=== PATIENT | male | born 1955 | race African-American/Black ===

== ENCOUNTER 2022-03-07 08:59 | Emergency (ER) | payer SELFPAY ==
[~2022-03-07] VITALS: Ht 185.4 cm; Wt 68.0 kg
[2022-03-07] MEDS ORDERED: LIDOCAINE 2% 20 ML MDV ONE (09:11)
[2022-03-07] MEDS ORDERED: LIDOCAINE HCL/PF 1% 30 ML SDV ONE (09:28)
[2022-03-07] MEDS ORDERED: BACI/NEOM/POLY B OINT PKT 1 UDPKT PACKET ONE (09:29)
[2022-03-07] MEDS: BACI/NEOM/POLY B OINT PKT 1 UDPKT PACKET TP ONE (09:30)
[2022-03-07] MEDS: LIDOCAINE 1% INJ 50 ML MDV IJ ONE (09:30)
--- NOTE | 2022-03-07 11:00 | NUR ---
BIB [facility] 89 [facility] AT [facility] -BT - LOC, PT HAS HIS OF CHF AND HAS BILATERAL LOWER EXTREMITY SWELLING THAT MAKES HER TRIP, LAC ON L EYEBROW. PLACED ON BED, AAOX4, BREATHING EVEN AND UNLABORED SATURATING AT 97%RA
[2022-03-07] MEDS ORDERED: LIDOCAINE 1% INJ 50 ML MDV IJ ONE (11:06)
--- NOTE | 2022-03-07 12:37 | NUR ---
CT HEAD RESULTED,WAITING FOR DISPO
[2022-03-07] MEDS ORDERED: IBUP-1955 PO (12:52)
--- NOTE | 2022-03-07 13:00 | NUR ---
SUTURE DONE BY AND NEOSPORIN OINTMENT APPLIED.
--- NOTE | 2022-03-07 13:25 | NUR ---
Patient discharged to home in stable condition. Written and verbal after care instructions given. Patient verbalizes understanding of instruction.
[2022-03-07 13:59] VITALS: BP 110/60
== END 2022-03-07 13:25 | disposition home or self-care (01) ==
LOC: ER 09:21
DX: S01.112A Laceration without foreign body of left eyelid and periocular area, initial encounter (principal); S01.511A Laceration without foreign body of lip, initial encounter; I11.0 Hypertensive heart disease with heart failure; I50.9 Heart failure, unspecified; W10.1XXA Fall (on)(from) sidewalk curb, initial encounter; Y93.89 Activity, other specified; Y92.89 Other specified places as the place of occurrence of the external cause; Y99.8 Other external cause status
CPT/HCPCS: 99284; 70450; 12013; J7030; A6403; J3490 ×2

== ENCOUNTER 2022-03-13 13:15 | Emergency (ER) | payer MEDICAID ==
[~2022-03-13] VITALS: Ht 185.4 cm; Wt 68.0 kg
[2022-03-13 13:15] VITALS: BP 98/72
[~2022-03-13 13:15] MED LIST: IBUP-1955 PO
--- NOTE | 2022-03-13 13:15 | NUR ---
BIBS FOR FOLLOW UP AND SUTURE REMOVAL ON HIS L EYEBROW, DENIES ANY PAIN
--- NOTE | 2022-03-13 14:31 | NUR ---
Patient discharged to home in stable condition. Written and verbal after care instructions given. Patient verbalizes understanding of instruction.
== END 2022-03-13 14:31 | disposition home or self-care (01) ==
LOC: ER 13:16
DX: Z48.02 Encounter for removal of sutures (principal); S01.112D Laceration without foreign body of left eyelid and periocular area, subsequent encounter; I11.0 Hypertensive heart disease with heart failure; I50.9 Heart failure, unspecified; Z79.1 Long term (current) use of non-steroidal anti-inflammatories (NSAID); X58.XXXD Exposure to other specified factors, subsequent encounter

== ENCOUNTER 2022-03-20 12:25 | Inpatient (IN) | payer MEDICAID ==
[~2022-03-20] VITALS: Ht 185.4 cm; Wt 73.9 kg
--- NOTE | 2022-03-20 12:45 | NUR ---
BIB FAMILY C/O GENERALIZED WEAKNESS, POOR PO INTAKE AND FREQUENT FALLS FOR THE PAST 2 WEEKS. TO ER BED 7.
[2022-03-20] MEDS ORDERED: CLON0.5T4 PO (13:15)
[2022-03-20] MEDS ORDERED: FOLI0.8T23 PO (13:15)
[2022-03-20] MEDS ORDERED: ASPI-1420 PO (13:15)
[2022-03-20] MEDS ORDERED: SPIR25TA6 PO (13:15)
[2022-03-20] MEDS ORDERED: CARV12.52 PO (13:15)
[2022-03-20] MEDS ORDERED: ALLO100T PO (13:15)
[2022-03-20] MEDS ORDERED: DAPA10TA PO (13:15)
[2022-03-20] MEDS ORDERED: IV NS 0.9% 500 ML BAG IV ONE (13:30)
--- NOTE | 2022-03-20 14:00 | NUR ---
IV LINE ESTABLISHED ON RFA #22. NS IV INFUSING.
--- NOTE | 2022-03-20 14:14 | NUR ---
MOVE SHEET SUBMITTED.
--- NOTE | 2022-03-20 14:46 | NUR ---
COVID SWAB COLLECTED AND SENT TO LAB
--- NOTE | 2022-03-20 14:51 | NUR ---
IV ESTABLISHED L AC 20G. LABS DRAWN AND COLLECTED AT BEDSIDE.
[2022-03-20 15:03] LABS: BASOPHILS % (AUTO) 0.2 % (0.0-2.0); EOSINOPHILS % (AUTO) 0.2 % (0.0-6.0); HEMATOCRIT 46 % (39-51); HEMOGLOBIN 14.7 g/dL (13.5-17.5); LYMPHOCYTES # (AUTO) 0.5 K/uL (0.8-4.8); LYMPHOCYTES % (AUTO) 7.3 % (20.0-44.0); MEAN CORPUSCULAR HGB CONC 32 g/dl (31.0-36.0); MEAN CORPUSCULAR VOLUME 89 fL (80-96); MONOCYTES # (AUTO) 0.5 K/uL (0.1-1.30); MONOCYTES % (AUTO) 6.8 % (2.0-12.0); NEUTROPHILS # (AUTO) 5.8 K/uL (1.8-8.9); NEUTROPHILS % (AUTO) 85.5 % (43.0-81.0); PLATELET COUNT (AUTO) 91 K/uL (150-450); WHITE BLOOD COUNT (AUTO) 6.7 K/uL (4.3-11.0)
[2022-03-20 16:31] LABS: CALCIUM, SERUM 9.4 mg/dL (8.5-10.1); CARBON DIOXIDE 17 mmol/L (21-32); CHLORIDE 103 mmol/L (98-107); CREATININE 2.5 mg/dL (0.6-1.3); GLUCOSE 72 mg/dL (74-106); POTASSIUM 4.9 mmol/L (3.5-5.1); SODIUM SERUM 136 mmol/L (136-145)
[2022-03-20 16:37] LABS: ALANINE AMINOTRANSFERASE 35 U/L (12-78); ALBUMIN 2.5 g/dL (3.4-5.0); ALKALINE PHOSPHATASE 105 U/L (46-116); ASPARTATE AMINOTRANSFERASE 26 U/L (15-37); BILIRUBIN,DIRECT 1.8 mg/dL (0.0-0.2); BILIRUBIN,TOTAL 2.6 mg/dL (0.2-1.0); TOTAL PROTEIN, SERUM 7.6 g/dL (6.4-8.2)
[2022-03-20 16:38] LABS: UREA NITROGEN, BLOOD 87 mg/dL (7-18)
--- NOTE | 2022-03-20 16:59 | NUR ---
RT AT BEDSIDE FOR ABG
[2022-03-20] MEDS ORDERED: PIPERACILLIN /TAZOBACTAM 3.375 G in IV D5W 50 ML IV ONE (17:00)
[2022-03-20] MEDS ORDERED: IV NS 0.9% 1,000 ML BAG IV ONE (17:00)
--- NOTE | 2022-03-20 17:07 | NUR ---
MIDLINE NURSE AT BEDSIDE
[2022-03-20 17:10] LABS: ABG BASE EXCESS -11.3 mmol/L; ABG PCO2 30.8 mmHg (35.0-45.0); ABG PO2 25.9 mmHg (75.0-100.0); COHb 0.3 % (0.5-1.5); MetHb 0.5 % (0.0-1.5); O2Hb 33.5 % (94.0-97.0); SITE, ABG Right Radial; VENT MODE, BG ROOMAIR
[2022-03-20 17:26] LABS: CREATINE KINASE, TOTAL 122 U/L (39-308)
--- NOTE | 2022-03-20 17:35 | NUR ---
PT TAKEN TO RADIOLOGY FOR CT
--- NOTE | 2022-03-20 17:38 | NUR ---
BED GIVEN 322-2
[2022-03-20 17:47] LABS: BAND % (MANUAL) 12 % (0.0-5.0); LYMPHOCYTES % (MANUAL) 7 % (16-48); MONOCYTES % (MANUAL) 5 % (0-11.0); NEUTROPHILS % (MANUAL) 76 (42-76)
--- NOTE | 2022-03-20 17:52 | NUR ---
PT REPORT GIVEN TO KAYODE JOHNSON
[2022-03-20] MEDS ORDERED: IV NS 0.9% 1,000 ML IV SCH (18:00)
[2022-03-20] MEDS ORDERED: *INSULIN REGULAR(HUMULIN R)HUM 100 UNIT/ML VIAL SQ PRN (18:00)
[2022-03-20] MEDS ORDERED: MAGNESIUM HYDROXIDE 30 ML UDC PO PRN (18:00)
[2022-03-20] MEDS ORDERED: MAG HYDROX/AL HYDROX/SIMETH 30 ML UDC PO PRN (18:00)
[2022-03-20] MEDS ORDERED: ACETAMINOPHEN 325 MG TABLET PO PRN (18:00)
[2022-03-20] MEDS ORDERED: CEFTRIAXONE 1 G in IV D5W 50 ML IV SCH (18:00)
[2022-03-20] MEDS ORDERED: ONDANSETRON HCL/PF 4 MG/2 ML VIAL IVP PRN (18:00)
[2022-03-20] MEDS ORDERED: clonazePAM 0.5 MG TABLET PO PRN (18:00)
[2022-03-20] MEDS ORDERED: Z GUARD REMEDY 4 OZ OINT TP PRN (18:00)
--- NOTE | 2022-03-20 18:57 | NUR ---
PT TRANSFERRED TO [facility]-2 VIA [facility] ACLS PROTOCOL. WARM HANDOFF GIVEN TO KAYODE JOHNSON
--- NOTE | 2022-03-20 19:30 | NUR ---
RN OPENING NOTE HAND-OFF REPORT WAS GIVEN TO THIS NURSE FROM DAY SHIFT RNELIZABETH. DAY SHIFT HAD RECEIVED PATIENT AT SHIFT CHANGE. PATIENT IN BED W/ MOTHER AT BEDSIDE. A/OX3. NO S/S OF DISTRESS, BREATHING WITHOUT DIFFICULTY ON ROOM AIR. LAC #20 SL INTACT AND PATENT; DONTA MIDLINE #18 SL INTACT AND PATENT. TELE READS SR 89 W/ BBB AND PVCs. SAFETY MEASURES IN PLACE: BED LOCKED IN PLACE AND AT LOWEST POSITION, RAILS UP X2, CALL [place] WITHIN REACH. PATIENT WAS ALREADY IN BED WHEN THIS RN CAME ON DUTY. PATIENT WAS ORIENTED TO THE UNIT. PATIENT GIVEN CALL [place] AND INSTRUCTED ON ITS USE. BELONGINGS WERE ACCOUNTED FOR, LOGGED IN SHEET, AND PLACED IN CHART. PATIENT STABLE. WILL CONTINUE TO MONITOR.
[2022-03-20] MEDS ORDERED: VANCOMYCIN 1 GM in IV D5W 250 ML IV ONE (20:00)
--- NOTE | 2022-03-20 20:35 | NUR ---
RN NOTE PATIENT HAD A CRITICAL LAB OF LACTIC ACID OF 5.5. THIS IS DOWN FROM 5.9 FROM EARLIER UPON ADMISSION. ON-CALL HUBER SHEFFIELD, NOTIFIED. WILL CONTINUE TO MONITOR PATIENT.
[2022-03-20] MEDS: DEXTROSE 50%-WATER 50 ML DISP.SYRIN IV PRN ×2 (21:25→22:41)
[2022-03-20] MEDS: BLOOD SUGAR DIAGNOSTIC 1 EACH STRIP VI SCH (22:34)
--- NOTE | 2022-03-20 22:40 | NUR ---
RN NOTE PATIENT'S ACCUCHECK WAS 31 (DOUBLE-CHECKED/VERIFIED). DEXTROSE ADMINISTERED PER PROTOCOL. RE-CHECK ON ACCUCHECK REVEALS 94 - ISSUE RESOLVED. PATIENT HAS ALSO COMPLAINED OF SOB; O2 CHECKED: DROPPED TO 72%. PATIENT DOES HAVE A HX OF CHF. NC ADMINISTERED W/ 2L/MIN. PATIENT REGAINED O2 STABILITY SATTING AT 100%. PATIENT STATED HE FELT MORE RELIEVED. PATIENT STABLE; WILL CONTINUE TO CLOSELY MONITOR PATIENT.
[2022-03-21] VITALS (48 sets, daily range): BP systolic 51–120; BP diastolic 22–85
[2022-03-21] MEDS: ZOSYN IVPB 3.375 G in IV D5W 50ml IV SCH ×4 (00:23→18:10)
--- NOTE | 2022-03-21 02:50 | NUR ---
RN NOTE CONTACTED ON-CALL HUBER SHEFFIELD, REGARDING PATIENT'S COMPLAINTS OF POSSIBLE BLADDER PAIN. ORDER WAS GIVEN FOR USE OF BLADDER SCANNER, AND TO HOLD OFF IV FLUIDS FOR NOW DUE TO CONCERNS OF FLUID OVERLOAD AND PATIENT'S COMPLAINTS OF SOB. PATIENT O/W STABLE; WILL CONTINUE TO MONITOR PATIENT.
--- NOTE | 2022-03-21 03:50 | NUR ---
RN NOTE BLADDER SCANNER REVEALED URINARY RETENTION AT >365ML. ON-CALL NOTIFIED. ORDER GIVEN FOR JONES INSERTION. PATIENT O/W STABLE; WILL CONTINUE TO MONITOR.
[2022-03-21] MEDS: DEXTROSE 50%-WATER 50 ML DISP.SYRIN IV PRN ×2 (05:42→12:22)
--- NOTE | 2022-03-21 07:02 | NUR ---
RN CLOSING NOTE PATIENT AWAKE IN BED. A/OX2. NO S/S OF DISTRESS, BREATHING WITHOUT DIFFICULTY ON 2L NC. DONTA MIDLINE #SL & LFA #20 SL INTACT AND PATENT. TELE READS SR83 W/ BBB AND PVCs. SAFETY MEASURES IN PLACE: BED LOCKED IN PLACE AND AT LOWEST POSITION, RAILS UP X2, CALL [place] WITHIN REACH. WILL ENDORSE TO NEXT SHIFT FOR TAYLOR.
[2022-03-21] MEDS: BLOOD SUGAR DIAGNOSTIC 1 EACH STRIP VI SCH ×4 (07:05→22:00)
[2022-03-21] MEDS: INSULIN REGULAR, HUMAN 100 UNIT/ML 3 ML VIAL SQ PRN ×2 (07:05→12:59)
--- NOTE | 2022-03-21 07:30 | NUR ---
GLUE REEL OPERATOR OPENING NOTE RECEIVED PT AWAKE AND RESTING IN BED. PT IS A/O X2-3, WITH EPISODES OF CONFUSION AND FORGETFUL. REORIENTED PT NEEDED. PT ON O2 AT 6L/MIN VIA NASAL CANNULA, TOLERATING WELL WITH SPO2 AT 90%. NO SOB NOTED. NOT IN ANY SIGN OF RESPIRATORY DISTRESS. DR. REID MADE AWARE OF THE SPO2. ON TELE CLERICAL ASSISTANT WITH CURRENT READING OF SINUS RHYTHM WITH BBB AND PVCS, HR 83. NO C/O CARDIAC DISTRESS VOICED OUT AT THIS TIME. IV ACCESS IN DONTA ML G#18 AND LFA G#20 INTACT AND PATENT. SAFETY MEASURES IN PLACE: BED IN LOWEST AND LOCKED POSITION, SIDE RAILS UP X2, BED ALARM ON, AND CALL LIGHT WITHIN REACH. WILL CONTINUE TO MONITOR PT.
[2022-03-21] MEDS ORDERED: IV D5/ 0.9% NACL 1,000 ML IV SCH (08:00)
--- NOTE | 2022-03-21 08:34 | NUR ---
WOUND CARE CONSULT: PT PRESENTS WITH LEFT EYEBROW CRUSTED WOUND, PRESENT ON ADMISSION. PT ALSO NOTED TO HAVE RESOLVING EDEMA TO LOWER LEGS WITH THICKENED SKIN. VERY BONY SACRAL AREA NOTED. PT STATES THAT SUTURES WERE REMOVED RECENTLY FROM EYEBROW LACERATION. DR MARMOLEJO CALLED FOR SURGICAL CONSULT. DISCUSSED SKIN PROTECTION WITH NURSING STAFF. ROBERT TOBIAS NOTED. MD IN AGREEMENT WITH PLAN OF CARE.
[2022-03-21] MEDS ORDERED: NEPRO VAN 237 ML CAN PO PRN (09:30)
[2022-03-21 10:14] LABS: CALCIUM, SERUM 9.7 mg/dL (8.5-10.1); CREATININE 2.9 mg/dL (0.6-1.3); MAGNESIUM 2.9 mg/dL (1.8-2.4); PHOSPHORUS 7.7 mg/dL (2.5-4.9)
[2022-03-21 10:38] LABS: POTASSIUM 5.2 mmol/L (3.5-5.1)
--- NOTE | 2022-03-21 10:50 | NUR ---
RN NOTE CALLED DR. REID AND MADE HIM AWARE THAT P'S URINE IN THE JONES IS MILKY BROWN IN COLOR. DR. REID ORDERED UA AND URINE CULTURE. ORDERS CARRIED OUT.
--- NOTE | 2022-03-21 11:25 | NUR ---
RN NOTE CHECKED PT'S ACCUCHECK ORDERED, SCHEDULED AT 1200 WITH RESULT OF 67. RESULT WAS REJECTED AND WILL REASSESS. PT WAS GIVEN 1 APPLE JUICE WITH 5 SMALL PACKS OF GRANULATED SUGAR AT THIS TIME. WILL MONITOR AND REASSESS PT.
[2022-03-21] MEDS ORDERED: SODIUM POLYSTYRENE SULFONATE 15 G/60 ML BOTTLE PO ONE (11:30)
--- NOTE | 2022-03-21 11:35 | NUR ---
RN NOTE PT NOTED WITH SHORTNESS OF BREATH AND LABORED BREATHING. SPO2 IS AT 88% WITH O2 AT 6L/MIN VIA NASAL CANNULA. KEPT HOB ELEVATED. ENCOURAGED PT TO DO DEEP BREATHING EXERCISES. SPO2 INCREASED TO 90%. PT ALSO NOTED WITH EPISODES OF RESTLESSNESS AND AGITATED TRYING TO GET OUT OF BED. TELE REGULATOR PIN INSERTER READING REMAINS THE SAME WITH SINUS RHYTM WITH BBB AND PVS, HR 83. NO C/O OF CARDIAC DISTRESS VOICED OUT AT THIS TIME. PT'S CURRENT BP IS 98/54. PT'S SKIN COOL TO TOUCH. CALLED DR. REID AND LEFT MESSAGE. AWAITING FOR HIS CALL BACK.
--- NOTE | 2022-03-21 11:40 | NUR ---
RN NOTE RECEIVED A CALL FROM [employer] REPORTING CRITICAL LAB RESULT OF CO2 [address] REID AND MADE AWARE OF CRITICAL LAB RESULTS WITH ORDERS TO TRANSFER PT TO ICU.
--- NOTE | 2022-03-21 11:46 | NUR ---
RN NOTE REASSESSED PT'S ACCUCHECK WITH RESULT OF 60MG/DL PRIOR TO TRANSFERRING PT TO ICU. PER DUNCAN, CHARGED NURSE, ICU NURSE WANTS PT TO BE TRANSFERRED NOW AND THEY WILL TAKE CARE OF THE PT AND WILL BE THE ONE TO ADMINISTER THE D50 FOR THE LOW BLOOD SUGAR. ORANGE JUICE WITH 5 SMALL PACK OF GRANULATED SUGAR GIVEN TO PT AND PT WAS ABLE TO SWALLOW THE JUICE WELL.
[2022-03-21 11:49] LABS: ABG BASE EXCESS -21.4 mmol/L; ABG OXYGEN SATURATION 97.1 % (92.0-98.5); ABG PCO2 13.4 mmHg (35.0-45.0); ABG PH 7.167 (7.350-7.450); AaDO2 68.8 mmHg; COHb 0.6 % (0.5-1.5); MetHb 0.2 % (0.0-1.5); O2Hb 96.3 % (94.0-97.0); SITE, ABG Left Brachial; VENT MODE, BG 2L NC
[2022-03-21 11:53] LABS: BASOPHILS % (AUTO) 0.1 % (0.0-2.0); EOSINOPHILS % (AUTO) 0.5 % (0.0-6.0); HEMATOCRIT 46 % (39-51); HEMOGLOBIN 13.8 g/dL (13.5-17.5); LYMPHOCYTES # (AUTO) 0.3 K/uL (0.8-4.8); LYMPHOCYTES % (AUTO) 4.1 % (20.0-44.0); MEAN CORPUSCULAR HGB CONC 30 g/dl (31.0-36.0); MEAN CORPUSCULAR VOLUME 94 fL (80-96); MONOCYTES # (AUTO) 0.3 K/uL (0.1-1.30); MONOCYTES % (AUTO) 3.9 % (2.0-12.0); NEUTROPHILS # (AUTO) 7.2 K/uL (1.8-8.9); NEUTROPHILS % (AUTO) 91.4 % (43.0-81.0); PLATELET COUNT (AUTO) 95 K/uL (150-450); RED BLOOD CELL COUNT(AUTO) 4.92 MIL/uL (4.5-6.0); WHITE BLOOD COUNT (AUTO) 7.8 K/uL (4.3-11.0)
[2022-03-21] MEDS ORDERED: SODIUM BICARBONATE SYR 50 MEQ/50 ML DISP.SYRIN ONE (11:59)
[2022-03-21] MEDS ORDERED: SODIUM BICARBONATE SYR 50 MEQ/50 ML DISP.SYRIN IV ONE ×2 (12:00→18:00)
[2022-03-21] MEDS ORDERED: PHYTONADIONE INJ 10 MG/1 ML AMPUL SQ ONE (12:00)
--- NOTE | 2022-03-21 12:00 | NUR ---
RN NOTE PT TRANSFERRED TO ICU VIA BED, REPORT GIVEN TO ICU NURSE, KAYODE GUERRA AT BEDSIDE. FAMILY AWARE OF TRANSFER. Addendum: 03/21/22 at 1956 by KOURTNEY COSTELLO RN ADDENDUM PT'S TELE BOX GIVEN TO THE CARRIER ASSOCIATE.
[2022-03-21] MEDS ORDERED: IV NS 0.9% 1,000 ML IV ONE (12:30)
--- NOTE | 2022-03-21 12:30 | NUR ---
ICU/RN PT TRANSFERRED FROM [facility].ABG DONE .PT HAS METABOLIC ACIDOSIS,ACUTE RENAL FAILURE.F/C IN PLACE NO URINE OUTPUT -SMALL AMOUNT OF PUS.K-5.2. BUN /CREATININE ELEVATED.MD AWARE.PT HAS LEFT PSOAS MUSCLE ABSCESS. CT GUIDED DRAINAGE RECOMMENDED.PT IS NOT STABLE TO GO. ON 6L N/C .UNABLE TO DO ABG. RESPIRATORY THERAPIST DID VENOUS BLOOD GASES .MD NOTIFIED. 2 AMPS OF BICARB GIVEN, D10 BOLUS GIVEN IV. IV FLUIDS WITH BICARB ORDERED.PT IS AWAKE ,ALERT.NO PAIN REPORTED AT THIS TIME. 1L BOLUS OF NS ORDERED.FAMILY AT BEDSIDE.
[2022-03-21 12:57] LABS: BILIRUBIN,URINE LARGE (NEGATIVE); COLOR,URINE BROWN (YELLOW); LEUKOCYTE ESTERASE ,URINE LARGE (NEGATIVE); NITRITE, URINE POSITIVE (NEGATIVE); PH,URINE 6.5 (5.0-8.0); PROTEIN,URINE >=300 mg/dl (NEGATIVE); UGLUCOSE 250 MG/DL mg/dL (NEGATIVE)
[2022-03-21] MEDS: Sodium Bicarbonate 150 MEQ in IV D5/0.45 NACL 1,000 ML IV SCH (13:00)
[2022-03-21] MEDS: HYDROCORTISONE SOD SUCCINATE 100 MG/2 ML VIAL IV SCH ×2 (13:05→20:10)
--- NOTE | 2022-03-21 14:30 | NUR ---
ICU/RN BP DECREASED LEVOPHED STARTED ORDERED. RIGHT UPPER ARM PICC LINE INSERTED ORDERED OK TO USE.
[2022-03-21] MEDS: NOREPINEPHRINE 8 MG in IV NS 0.9% 242 ML IV PRN ×2 (14:32→21:23)
[2022-03-21 14:39] LABS: BACTERIA,URINE Many /HPF (None Seen); SQUAMOUS EPITHELIAL CELL,UR None Seen /HPF (None Seen); WBC,URINE TOO NUMEROUS TO COUN /HPF (0-3)
[2022-03-21 15:40] LABS: ABG BASE EXCESS -19.6 mmol/L; ABG OXYGEN SATURATION 26.9 % (92.0-98.5); ABG PCO2 28.1 mmHg (35.0-45.0); ABG PH 7.103 (7.350-7.450); ABG PO2 25.5 mmHg (75.0-100.0); COHb 0.1 % (0.5-1.5); MetHb 0.9 % (0.0-1.5); O2Hb 26.6 % (94.0-97.0); SITE, ABG Other
[2022-03-21 17:11] LABS: D-DIMER 24.39 mg/L(FEU (0.17-0.50)
[2022-03-21 17:15] LABS: THYROID STIMULATING HORMONE 4.16 uIU/mL (0.358-3.74)
[2022-03-21 17:16] LABS: C-REACTIVE PROTEIN 11.9 mg/dL (0.0-0.9)
--- NOTE | 2022-03-21 18:00 | NUR ---
ICU/RN VBG DONE .MD NOTIFIED.3 AMPS OF SODIUM BICARB ORDERED AND IV GIVEN.DR SANTAMARIA AT BEDSIDE.TALK TO THE PATIENT AND FAMILY.PT IS AWAKE,VERY WEAK .OK TO START HEMODIALYSIS.PT IS ANURIC AND VERY ACIDOTIC. CONSENT SIGN .WAITING FOR HD CATHETER PLACEMENT.
--- NOTE | 2022-03-21 18:30 | NUR ---
ICU/RN BS-132. NO COVERAGE.PT IS NPO. IV FLUIDS INFUSING ORDERED. PT IS POSITIVE FOR RIGHT LEG DVT. NOTIFIED.
--- NOTE | 2022-03-21 19:23 | NUR ---
MED NOTE: PREVIOUS GLUCOSE REASSESSMENTS NOT COMPLETE BY ADMINISTERING NURSES. REMOVED FROM PT EMAR FOR PT SAFETY.
--- NOTE | 2022-03-21 20:00 | NUR ---
ICU/RN: WARMING MEASURES IMPLEMENTED.
[2022-03-21] MEDS: VANCOMYCIN 0.75 GM in IV D5W 250 ML IV SCH (20:11)
[2022-03-21] MEDS: MEROPENEM 500 MG in IV NS 0.9% 50 ML IV SCH (21:08)
[2022-03-21 21:12] LABS: BAND % (MANUAL) 11 % (0.0-5.0); BASOPHILS % (MANUAL) 0 % (0.0-2.0); EOSINOPHILS % (MANUAL) 2 % (0-4); LYMPHOCYTES % (MANUAL) 9 % (16-48); MONOCYTES % (MANUAL) 7 % (0-11.0); NEUTROPHILS % (MANUAL) 71 (42-76)
[2022-03-21] MEDS ORDERED: ALBUMIN 25% 50 ML IV ONE ×2 (21:26→21:28)
[2022-03-21] MEDS ORDERED: ALBUMIN 25% 25 GM in PREMIX 1 EA IV PRN (21:30)
[2022-03-21] MEDS ORDERED: SIMVASTATIN 20 MG TABLET PO SCH (22:00)
--- NOTE | 2022-03-21 22:09 | NUR ---
ICU/RN: RIGHT IJ DIALYSIS CATH AND LEFT RADIAL A-LINE PLACED BY KOMAL TURPIN. PT TOLERATED PROCEDURE. ANDREW HD NURSE AT BEDSIDE TO PROCEED WITH HEMODIALYSIS ORDERED.
--- NOTE | 2022-03-21 22:25 | NUR ---
ICU/RN: PT WASN'T ABLE TO TOLERATE HD. HD STOPPED. PT BECAME HYPOTENSION AND LESS RESPONSIVE. CARLOS RAIN DNP NOTIFIED. ORDER FOR STAT INTUBATION.
--- NOTE | 2022-03-21 22:39 | NUR ---
ICU/RN: PT INTUBATED BY DR. COPE SIZE 8.0 ETT 25CM AT THE LIP. VERIFIED BY COLOR CHANGE, AUSCULTATION AND CXR.
--- NOTE | 2022-03-21 22:45 | NUR ---
RT CALLED TO PT BEDSIDE FOR INTUBATION. ABG PREFORMED. ER PHYSICIAN INTUBATED PT WITH 8.0ETT@25CM. SECURED WITH ANCHORFAST. PT PLACED ON VENT AC 24 450 100% +0. Addendum: 03/21/22 at 2309 by MILLER AVALOS RT Amended: Links added.
[2022-03-21] MEDS ORDERED: NOREPINEPHRINE 4 MG/4 ML AMPUL IV ONE (23:16)
[2022-03-21] MEDS: NOREPINEPHRINE 32 MG in IV NS 0.9% 218 ML IV PRN (23:23)
[2022-03-21] MEDS: PROPOFOL 100 ML IV PRN (23:23)
[2022-03-22] VITALS (51 sets, daily range): BP systolic 46–98; BP diastolic 32–75
[2022-03-22] MEDS: Sodium Bicarbonate 150 MEQ in IV D5/0.45 NACL 1,000 ML IV SCH ×3 (00:06→19:10)
[2022-03-22 00:53] LABS: ABG BASE EXCESS -24.2 mmol/L; ABG OXYGEN SATURATION 88.4 % (92.0-98.5); ABG PCO2 35.6 mmHg (35.0-45.0); ABG PH 6.937 (7.350-7.450); ABG PO2 83.8 mmHg (75.0-100.0); AaDO2 593.6 mmHg; COHb 0.3 % (0.5-1.5); MetHb 0.2 % (0.0-1.5); PEEP,BG 0 cm H2O; SITE, ABG A-Line; VENT MODE, BG AC 24 450 100% +0
--- NOTE | 2022-03-22 01:07 | NUR ---
ICU/RN: CRITICAL ABG RELAYED TO DR. RAIN. NEW ORDERS FOR VENT CHANGES AND REPEAT ABG IN AM.
--- NOTE | 2022-03-22 01:13 | NUR ---
ICU/RN: PT NOTED TO BE IN VENTRICULAR RHYTHM BUT HAD A STRONG PALPABLE CAROTID PULSE. DR. RAIN NOTIFIED NEW ORDERS RECEIVED FOR AMIODARONE DRIP AND MAGNESIUM BOLUS 1 GRAM.
[2022-03-22] MEDS ORDERED: AMIODARONE 150 MG in IV D5W 100 ML IV STA (01:14)
[2022-03-22] MEDS ORDERED: AMIODARONE 150 MG/3 ML VIAL IV ONE ×2 (01:16→01:27)
--- NOTE | 2022-03-22 01:29 | NUR ---
ICU/RN: SPOKE WITH PTS MOTHER IDMITRI AND PTS SON PRASANNA. GAVE UPDATE AND RECOMMEND THAT THEY COME TO BE WITH THE PT.
[2022-03-22] MEDS ORDERED: AMIODARONE 450 MG in IV D5W 241 ML IV PRN (01:30)
[2022-03-22] MEDS ORDERED: AMIODARONE 150 MG in IV D5W 100 ML IV ONE (01:30)
[2022-03-22] MEDS ORDERED: Magnesium 1GM/D5W 100ML PREMIX 100 ML IV SCH (01:30)
[2022-03-22] MEDS: AMIODARONE 450 MG in IV D5W 241 ML IV PRN ×2 (01:33→12:41)
--- NOTE | 2022-03-22 02:00 | NUR ---
ICU/RN: FAMILY AT BEDSIDE. UPDATE GIVEN.
[2022-03-22] MEDS ORDERED: PHENYLEPHRINE 10 MG/ML VIAL ONE (03:51)
[2022-03-22 03:55] LABS: BASOPHILS % (AUTO) 0.2 % (0.0-2.0); EOSINOPHILS % (AUTO) 0.1 % (0.0-6.0); HEMATOCRIT 40 % (39-51); LYMPHOCYTES # (AUTO) 0.3 K/uL (0.8-4.8); LYMPHOCYTES % (AUTO) 1.8 % (20.0-44.0); MEAN CORPUSCULAR HGB CONC 30 g/dl (31.0-36.0); MEAN CORPUSCULAR VOLUME 93 fL (80-96); MONOCYTES # (AUTO) 0.4 K/uL (0.1-1.30); MONOCYTES % (AUTO) 2.8 % (2.0-12.0); NEUTROPHILS # (AUTO) 13.5 K/uL (1.8-8.9); NEUTROPHILS % (AUTO) 95.1 % (43.0-81.0); PLATELET COUNT (AUTO) 74 K/uL (150-450); RED BLOOD CELL COUNT(AUTO) 4.29 MIL/uL (4.5-6.0); WHITE BLOOD COUNT (AUTO) 14.2 K/uL (4.3-11.0)
[2022-03-22] MEDS: PHENYLEPHRINE 100 MG in IV NS 0.9% 240 ML IV PRN ×2 (03:57→12:41)
--- NOTE | 2022-03-22 03:58 | NUR ---
MED NOTE: ANGELINE-SYNEPHRINE DRIP ADDED FOR BP SUPPORT. ALL MEDICATION ADMINISTERED UNDER VERIFIED MEDS. OVERRIDE MEDS REMOVED FROM PT EMAR FOR PT SAFETY.
[2022-03-22 04:02] LABS: CALCIUM, SERUM 8.6 mg/dL (8.5-10.1); CREATININE 3.1 mg/dL (0.6-1.3); POTASSIUM 5.2 mmol/L (3.5-5.1)
[2022-03-22] MEDS ORDERED: NOREPINEPHRINE 4 MG/4 ML AMPUL IV ONE (05:10)
[2022-03-22] MEDS: HYDROCORTISONE SOD SUCCINATE 100 MG/2 ML VIAL IV SCH ×3 (05:20→21:00)
[2022-03-22] MEDS: NOREPINEPHRINE 32 MG in IV NS 0.9% 218 ML IV PRN ×3 (05:21→18:44)
[2022-03-22] MEDS ORDERED: VASOPRESSIN INJ 40 UNIT in IV NS 0.9% 38 ML IV PRN (05:30)
[2022-03-22 05:51] LABS: BAND % (MANUAL) 11 % (0.0-5.0); BASOPHILS % (MANUAL) 0 % (0.0-2.0); EOSINOPHILS % (MANUAL) 0 % (0-4); LYMPHOCYTES % (MANUAL) 6 % (16-48); MONOCYTES % (MANUAL) 4 % (0-11.0); NEUTROPHILS % (MANUAL) 79 (42-76)
[2022-03-22] MEDS ORDERED: VASOPRESSIN INJ 20 UNIT/ML VIAL ONE (06:07)
--- NOTE | 2022-03-22 06:17 | NUR ---
MED NOTE: VASOPRESSIN DRIP ADDED FOR BP SUPPORT.
[2022-03-22] MEDS: PROPOFOL 100 ML IV PRN (06:27)
[2022-03-22] MEDS ORDERED: LIDOCAINE 100MG/5ML DISP SYR IV STA (06:57)
[2022-03-22] MEDS ORDERED: LIDOCAINE 100MG/5ML DISP SYR ONE (06:59)
[2022-03-22] MEDS ORDERED: IV LIDOCAINE HCL/D5W/PF/500ML 2,000 MG in PREMIX 1 EA IV PRN (07:00)
--- NOTE | 2022-03-22 07:00 | NUR ---
ICU/RN: DR. HOBBS AT BESIDE. PT WENT INTO A VENTRICULAR TACHYCARDIA. VERBAL ORDER FOR LIDOCANE BOLUS AND LIDOCAINE DRIP. REPORT TO CHUCK HEADLEY FOR CONT OF CARE.
[2022-03-22 07:06] LABS: IMMUNOGLOBULIN A, SERUM 514 mg/dL (61-437); IMMUNOGLOBULIN G, SERUM 2206 mg/dL (603-1613); IMMUNOGLOBULIN M, SERUM 51 mg/dL (20-172)
[2022-03-22] MEDS: MEROPENEM 500 MG in IV NS 0.9% 50 ML IV SCH ×2 (08:07→21:00)
[2022-03-22] MEDS ORDERED: ALLOPURINOL 100 MG TABLET PO SCH (09:00)
[2022-03-22] MEDS ORDERED: PROPOFOL 200 MG/20 ML VIAL IV ONE (09:51)
[2022-03-22] MEDS ORDERED: SODIUM BICARBONATE SYR 50 MEQ/50 ML DISP.SYRIN ONE (09:59)
[2022-03-22] MEDS ORDERED: SODIUM BICARBONATE SYR 50 MEQ/50 ML DISP.SYRIN IV STA (10:05)
[2022-03-22] MEDS ORDERED: ACETAMINOPHEN 325 MG TABLET PO ONE ×2 (11:00)
[2022-03-22 11:07] LABS: *ANA ANTI-CENTROMERE B AB <0.2 AI (0.0-0.9); *ANA ANTI-DNA(DS) AB, QN 1 IU/mL (0-9); *ANA ANTI-JO-1 <0.2 AI (0.0-0.9); *ANA ANTICHROMATIN ANTIBODY <0.2 AI (0.0-0.9); *ANA RNP ANTIBODIES 0.6 AI (0.0-0.9); *ANA SJOGREN'S ANTI-SS-A <0.2 AI (0.0-0.9); *ANA SJOGREN'S ANTI-SS-B <0.2 AI (0.0-0.9); *ANAANTI-SCLERODERMA-70 AB <0.2 AI (0.0-0.9); *ANASMITH AB <0.2 AI (0.0-0.9)
[2022-03-22] MEDS ORDERED: DEXTROSE 50%-WATER 50 ML DISP.SYRIN IVP PRN (12:00)
[2022-03-22] MEDS: BLOOD SUGAR DIAGNOSTIC 1 EACH STRIP VI SCH ×2 (12:06→17:19)
--- NOTE | 2022-03-22 12:21 | NUR ---
Acknowledging Lidocaine IVP given by Day Shift Charge Nurse. Prior to initiating Lidocaine Drip as ordered
[2022-03-22 12:25] LABS: D-DIMER 35.2 mg/L(FEU (0.17-0.50)
[2022-03-22 12:41] LABS: IRON, SERUM 162 ug/dl (50-175); TOTAL IRON BINDING CAPACITY 148 ug/dl (250-450)
[2022-03-22 12:48] LABS: FERRITIN 5144 ng/mL (8-388)
[2022-03-22 13:07] LABS: *SPE A/G RATIO 0.5 (0.7-1.7); *SPE ALPHA-1-GLOBULIN 0.2 g/dL (0.0-0.4); *SPE ALPHA-2-GLOBULIN 0.4 g/dL (0.4-1.0); *SPE BETA GLOBULIN 0.8 g/dL (0.7-1.3); *SPE M-SPIKE Not Observed g/dL (Not Observed)
[2022-03-22 16:14] LABS: ABG BASE EXCESS -25.2 mmol/L; ABG OXYGEN SATURATION 85.4 % (92.0-98.5); ABG PCO2 22.9 mmHg (35.0-45.0); ABG PH 6.971 (7.350-7.450); ABG PO2 66.6 mmHg (75.0-100.0); AaDO2 623.5 mmHg; COHb 0.2 % (0.5-1.5); MetHb 0.3 % (0.0-1.5); PEEP,BG 0 cm H2O; SITE, ABG A-Line; VT, ABG 550 mL
--- NOTE | 2022-03-22 17:11 | NUR ---
Patient HR 30's. A Line pressure reads 63/41. Family validates Pt code status is DNR; No CPR. Cont Vasopressors as ordered. Family expresses to hold anymore further treatment @ this time
--- NOTE | 2022-03-22 17:20 | NUR ---
Blood Transfusion cancelled per family request. Blood Bank notified
--- NOTE | 2022-03-22 19:30 | NUR ---
Received patient critically ill unresponsive to deep painful stimuli.DNR status intubated to mechanical vent maintain at same prescribed settings.On multiple gtt and max out on Vasopressin gtt 0.03 unit,Neosynephrine gtt at 3 mcg,Levophed gtt at 1 mcg , Amiodarone gtt at 0.5 mcg,Lidocaine gtt at 1 mg/min,Bicarb gtt at 150 ml/hr.Tele monitoring shows Idioventricular rhythm.Family at bedside refused further management. Pulse ox not reading.Continue monitoring.
[2022-03-22] MEDS: VANCOMYCIN 0.75 GM in IV D5W 250 ML IV SCH (20:00)
[2022-03-22] MEDS ORDERED: DEXTROSE 50%-WATER 50 ML DISP.SYRIN IV ONE (20:34)
--- NOTE | 2022-03-22 20:35 | NUR ---
ICU/RN: PT NOTED ASYSTOLE ON THE TELE MONITOR. NO PALPABLE PULSES. VERIFIED BY MYSELF AND CUBA HEADLEY. BODY CLEANED. BELONGINGS SENT WITH FAMILY.
--- NOTE | 2022-03-22 20:35 | NUR ---
Noted patient asystole in school bus monitor x3 leads no palpable pulse.Pupils fixed and dilated.Unresponsive to noxious stimuli.No BP,No respiration.All above signs not compatible to life.Pronounced by Rivas Ayala,Charge Nurse.
--- NOTE | 2022-03-22 20:48 | NUR ---
I WAS NOTIFIED BY ICU THAT PT HAS . VENT TURNED OFF AND ETT REMOVED.
--- NOTE | 2022-03-22 21:37 | NUR ---
ICU/RN: SPOKE WITH BELKYS AT [facility] PT NOT A CANDIDATE. REF # [id number]
--- NOTE | 2022-03-22 21:46 | NUR ---
ICU/RN: BODY SENT TO [facility].
== END 2022-03-22 20:35 | DRG 720 ==
LOC: ER 12:28 → TELE 17:40 → ICU 03-21 12:00
PROVIDERS: ADMIT Internal Medicine; ATTEND Internal Medicine
PROC: 05HA33Z Insertion of Infusion Device into Left Brachial Vein, Percutaneous Approach (ICD-10-PCS; 2022-03-20)
PROC: 5A1935Z Respiratory Ventilation, Less than 24 Consecutive Hours (ICD-10-PCS; principal; 2022-03-21)
PROC: 0BH18EZ Insertion of Endotracheal Airway into Trachea, Via Natural or Artificial Opening Endoscopic (ICD-10-PCS; 2022-03-21)
PROC: 02HV33Z Insertion of Infusion Device into Superior Vena Cava, Percutaneous Approach (ICD-10-PCS; 2022-03-21)
PROC: B548ZZA Ultrasonography of Superior Vena Cava, Guidance (ICD-10-PCS; 2022-03-21)
PROC: 05HM33Z Insertion of Infusion Device into Right Internal Jugular Vein, Percutaneous Approach (ICD-10-PCS; 2022-03-21)
PROC: B543ZZA Ultrasonography of Right Jugular Veins, Guidance (ICD-10-PCS; 2022-03-21)
PROC: 03HC33Z Insertion of Infusion Device into Left Radial Artery, Percutaneous Approach (ICD-10-PCS; 2022-03-21)
DX: A41.9 Sepsis, unspecified organism (principal); J96.21 Acute and chronic respiratory failure with hypoxia; N17.0 Acute kidney failure with tubular necrosis; D65 Disseminated intravascular coagulation [defibrination syndrome]; R65.21 Severe sepsis with septic shock; D61.818 Other pancytopenia; E43 Unspecified severe protein-calorie malnutrition; E11.649 Type 2 diabetes mellitus with hypoglycemia without coma; D68.9 Coagulation defect, unspecified; K68.12 Psoas muscle abscess; E87.20 Acidosis, unspecified; I13.0 Hypertensive heart and chronic kidney disease with heart failure and stage 1 through stage 4 chronic kidney disease, or unspecified chronic kidney disease; N18.9 Chronic kidney disease, unspecified; R29.6 Repeated falls; Z99.81 Dependence on supplemental oxygen; Z79.82 Long term (current) use of aspirin; Z79.899 Other long term (current) drug therapy; Z20.822 Contact with and (suspected) exposure to COVID-19; Z66 Do not resuscitate; M10.9 Gout, unspecified; E11.22 Type 2 diabetes mellitus with diabetic chronic kidney disease; K76.9 Liver disease, unspecified; E88.09 Other disorders of plasma-protein metabolism, not elsewhere classified; R18.8 Other ascites; Z86.718 Personal history of other venous thrombosis and embolism; I50.9 Heart failure, unspecified; E83.39 Other disorders of phosphorus metabolism; E83.41 Hypermagnesemia; E87.5 Hyperkalemia; J44.9 Chronic obstructive pulmonary disease, unspecified; R62.7 Adult failure to thrive; N13.30 Unspecified hydronephrosis
CPT/HCPCS: 31720; 36415; 36600; 71045-TC; 80048-TC; 80076-TC; 81001; 82010-TC; 82533; 82550-TC; 82607-TC; 82728-TC; 82784; 82803-TC; 82962-TC; 83540-TC; 83605-TC; 83615-TC; 83735-TC; 84100-TC; 84155; 84165; 84443-TC; 84484-TC; 85025-TC; 85396; 85610-TC; 85730-TC; 86140-TC; 86225; 86235; 86334; 86431-TC; 86706; 86803; 86850-TC; 87040-TC; 87081-TC; 87086-TC; 87186-TC; 87340; 93307-TC; 93970-TC; 94002-TC; 94003-TC; 94799-TC; A4216; C9803; G0378; J0282; J0696; J1720; J1815; J2001; J2185; J2370; J2543; J2704; J3370; J3430; J3475; J3490; J7030; J7040; J7042; J7050; J7060; P9047